=== PATIENT | male | born 1945 | race Caucasian/White ===

== ENCOUNTER 2021-08-13 17:36 | Emergency (ER) | payer MEDICARE, SELFPAY ==
[2021-08-13 17:38] VITALS: BP 138/84; PULSE 78; RESP 16; TEMP 37.6; O2SAT 95; BMI 29.7
[2021-08-13] MEDS: HYDROmorphone 1 MG/ML Syringe IV (18:41)
[2021-08-13] MEDS: Ondansetron 4 MG/2 ML Vial IV (18:41)
[2021-08-13] MEDS: 0.9% Normal Saline 1,000 ML 999 ML IV (18:41)
[2021-08-13 19:03] LABS: Absolute Lymphocyte Count 1.54 X10^3/uL (0.83-4.51); Absolute Neutrophil Count 8.5 X10^3/uL (2.0-7.7); Basophil# 0.04 X10^3/uL; Basophil% 0.3 % (0-1); Eosinophil# 0.03 X10^3/uL; Eosinophils% 0.3 % (0-5); Hematocrit 37.2 % (40-54); Hemoglobin 12.5 g/dL (13.0-16.5); Lymphocyte # 1.54 X10^3/ul (0.83-4.51); Lymphocyte % 13.5 % (19-41); Mean Corp Hgb Conc 33.6 g/dL (32-36); Mean Corpuscular Hgb 33.2 pg (27.0-32.0); Mean Corpuscular Volume 98.9 fL (80-94); Mean Platelet Vol. 10.3 fl (6.2-12.0); Monocyte# 1.26 X10^3/uL; NRBC Flagged by Analyzer 0 % (0-5); Neutrophil # 8.52 X10^3/uL (2.7-7.7); Neutrophil % 74.5 % (47-70); Platelet Count 248 K/mm3 (150-450); RBC Distribution Width CV 13.7 % (11.6-14.6); RBC Distribution Width SD 49.5 fl (35.1-43.9); Red Blood Count 3.76 M/mm3 (4.6-6.2); White Blood Count 11.4 K/mm3 (4.4-11.0)
[2021-08-13 19:10] LABS: International Normalized Ratio 2.3; Partial Thromboplast Time 41.5 Seconds (24.1-36.2); Prothrombin Time (Protime)PT. 24.3 SECONDS (11.7-14.9)
[2021-08-13 19:17] LABS: Anion Gap 7 (5-15); BUN 22 mg/dL (7-18); BUN/Creat Ratio 14.5 RATIO (10-20); Calcium,Total 8.8 mg/dL (8.5-10.1); Chloride 102 mmol/L (98-107); Creatinine, Serum 1.52 mg/dL (0.70-1.30); EST Glomerular Filtration Rate 48 mL/min (>60); Est Glom Filt Rate - Afr Amer 58 mL/min (>60); Estimated Creatinine Clearance 45.41 ml/min; Glucose 136 mg/dL (74-106); Potassium 4.1 mmol/L (3.5-5.1); Sodium Level 136 mmol/L (136-145)
[2021-08-13 19:23] LABS: Lactic Acid 1.6 mmol/L (0.4-1.9)
--- NOTE | 2021-08-13 19:29 | EDS_ITS ---
HPI History of Present Illness Chief Complaint: Lower Extremity Injury Narrative Narrative: Patient is a 76-year-old male with past history of peripheral arterial disease and need for femoropopliteal bypass. He is on Coumadin. He states that he was in [place] for the month of June and noticed that while down there he was having increased pain and discoloration of his right leg. He states when he returned back in July he went and saw his vascular surgeon who did a arteriogram and reported that there was minimal blockage. Patient states that he was off his Coumadin for this but has been back on it now for the past week or so. He states that over the last 24 hours he has had increased pain and discoloration to his right lower leg. He states that he has difficulty walking on it because of weakness and pain and he also has decreased sensation and therefore presents to the hospital for evaluation. [facility] Medical History Congestive heart failure (CHF) COPD (chronic obstructive pulmonary disease) Coronary artery disease Hyperlipidemia Hypertension Allergy/AdvReac Type Severity Reaction Status Date / Time piperacillin [From Zosyn] Allergy Rash Verified 08/13/21 17:37 tazobactam [From Zosyn] Allergy Rash Verified 08/13/21 17:37 Surgical History (Updated 08/13/21 @ 18:00 by Vibha Lund) Hx of CABG Social History Smoking Status: Former smoker ROS ROS ED Constitutional Constitutional ED: Denies chills or fever(s) ENT ENT ED: Denies sore throat Cardiovascular Cardiovascular: Denies chest pain Respiratory/Chest Respiratory/Chest: Denies cough or dyspnea Gastrointestinal Gastrointestinal: Denies abdominal pain, diarrhea, nausea or vomiting Genitourinary Genitourinary ED: Denies dysuria Musculoskeletal Musculoskeletal: Reports other Details: Positive right leg pain Integumentary Reports other Details: Positive ecchymosis/coolness ; Denies rash Neurologic Neurologic: Reports paresthesias and weakness; Denies headache(s) Hematologic/Lymphatic Hematologic/Lymphatic: Reports easy bleeding and easy bruising EXAM Physical Exam Const Vital Signs: 08/13/21 17:38 Temperature 99.7 F H Temperature Source Temporal Pulse Rate 78 Respiratory Rate 16 Blood Pressure 138/84 H Blood Pressure Mean 102 Pulse Ox 95 Oxygen Delivery Method Room Air Positive well nourished and well developed General Appearance ED: well developed Eyes PERRL and EOMs intact bilaterally Neck supple Chest Wall palpation of chest normal Resp normal respiratory effort and clear to auscultation bilaterally Cardio regular rate and regular rhythm GI normal to inspection, nondistended, normoactive bowel sounds, non-tender and non-distended Auscultation: normoactive bowel sounds Palpation: soft Back/Spine Back/Spine Narrative: No bony deformity or step-off of the thoracic or lumbar spine no midline pain with palpation. No saddle anesthesia. Patellar reflex on the right is not present it is plus 1 out of 2 on the left. No clonus noted. Negative Babinski. Positive foot drop on right Extremity Extremity Narrative: The right lower extremity is cool and mottled beginning at the knee and extending down to the foot. Capillary refill is delayed at approximately 5 seconds. The asymmetric coolness and mottling extends up to the knee and then improves in the distal thigh. Dorsalis pedis posterior tibial and popliteal pulses cannot be palpated and I cannot find them with Doppler either. Patient does have a palpable and dopplerable femoral pulse. Neuro oriented x3 and CN's II-XII intact bilaterally Sensorium / Orientation: alert Psych mental status grossly normal Skin Skin Narrative: Soft tissue changes to the right lower leg as documented above MDM MDM MDM Narrative Medical decision making narrative: Scented to the ER with a history of 1 month of worsening right leg pain and soft tissue changes however he reported an approximate last 24 hours the symptoms seem to acutely worsen. On exam I cannot palpate or Doppler pulses of the right leg up to the popliteal region. His capillary refill is also prolonged. He also has neuro claudication symptoms such as foot drop paresthesias and weakness. Secondary to these changes concerning for an acute on chronic limb ischemia I contacted his vascular surgeon who practices out of [facility]. At this time they recommend there is no need for imaging in the ER but simply transfer to their facility and placing him on heparin. He was given an 8000 bolus of heparin which was recommended by the vascular surgeon and then placed on a heparin drip. Patient will then be transferred to their facility. Patient states that he is acceptable with this plan Lab Data Attestation: I reviewed the patient's lab results. Labs: Laboratory Results - last 24 hr 08/13/21 08/13/21 08/13/21 18:45 18:45 18:45 WBC 11.4 H RBC 3.76 L Hgb 12.5 L Hct 37.2 L MCV 98.9 H MCH 33.2 H MCHC 33.6 RDW Std Deviation 49.5 H RDW Coeff of Linette 13.7 Plt Count 248 MPV 10.3 Immature Gran % (Auto) 0.400 Neut % (Auto) 74.5 H Lymph % (Auto) 13.5 L Centre % (Auto) 11.0 H Eos % (Auto) 0.3 Baso % (Auto) 0.3 Absolute Neuts (auto) 8.5 H Absolute Lymphs (auto) 1.54 Nucleated RBC % 0 PT 24.3 H INR 2.3 APTT 41.5 H Sodium 136 Potassium 4.1 Chloride 102 Carbon Dioxide 27.0 Anion Gap 7 BUN 22 H Creatinine 1.52 H Estim Creat Clear Calc 45.41 Est GFR (MDRD) Af Amer 58 L Est GFR (MDRD) Non-Af 48 L BUN/Creatinine Ratio 14.5 Glucose 136 H Lactic Acid Calcium 8.8 08/13/21 18:45 WBC RBC Hgb Hct MCV MCH MCHC RDW Std Deviation RDW Coeff of Linette Plt Count MPV Immature Gran % (Auto) Neut % (Auto) Lymph % (Auto) Centre % (Auto) Eos % (Auto) Baso % (Auto) Absolute Neuts (auto) Absolute Lymphs (auto) Nucleated RBC % PT INR APTT Sodium Potassium Chloride Carbon Dioxide Anion Gap BUN Creatinine Estim Creat Clear Calc Est GFR (MDRD) Af Amer Est GFR (MDRD) Non-Af BUN/Creatinine Ratio Glucose Lactic Acid 1.6 Calcium Discharge Plan Triage Chief Complaint: Lower Extremity Injury ED Provider: Eddi Nguyễn Dx/Rx/DC Orders Clinical Impression: Ischemia of right lower extremity Primary Care Provider: Carlitos Treviño Referrals: Carlitos Treviño MD [Primary Care Provider] - Disposition Disposition: Transfer to Another Type [facility]
[2021-08-13] MEDS: HEPARIN/D5w 25,000 UNITS 25,000 UNITS/250 ML IV.SOLN. 14 UNITS IV (19:31)
[2021-08-13] MEDS: Heparin Injection (Vial) 5,000 UNIT/ML VIAL 8000 UNIT IV (19:31)
[2021-08-13 19:37] VITALS: BP 203/57; PULSE 83; RESP 22; O2SAT 87
[2021-08-13 19:41] VITALS: BP 203/57; PULSE 79; RESP 22; O2SAT 95
[2021-08-13 20:00] VITALS: BP 201/52; PULSE 79; RESP 18; O2SAT 93
[2021-08-13 20:15] VITALS: BP 201/52; PULSE 79; RESP 18; TEMP 37.6; O2SAT 93
== END 2021-08-13 20:51 | disposition other institution (70) ==
PROVIDERS: Emergency Provider Emergency Medicine; PCP Family Medicine
DX: I99.8 Other disorder of circulatory system (principal); E78.5 Hyperlipidemia, unspecified; I11.0 Hypertensive heart disease with heart failure; I25.10 Atherosclerotic heart disease of native coronary artery without angina pectoris; I50.9 Heart failure, unspecified; J44.9 Chronic obstructive pulmonary disease, unspecified; Z79.01 Long term (current) use of anticoagulants; Z87.891 Personal history of nicotine dependence; Z95.1 Presence of aortocoronary bypass graft
CPT/HCPCS: 80048; 83605; 85025; 85610; 85730; 96361; 96365; 96375; 99285; J7030; A4216; J2405